=== PATIENT | female | born 1940 | race Caucasian/White ===

== ENCOUNTER 2018-04-18 20:15 | Emergency (ER) | payer OTHER, MEDICARE ==
[~2018-04-18 20:15] MED LIST: LIDODERM 5% PAT1 PAT TOP
[2018-04-18 20:19] VITALS: BP 166/83
[2018-04-18] MEDS ORDERED: LEVEMIR100 UNIT/1 SC (20:23)
[2018-04-18] MEDS ORDERED: LISINOPRIL2.5 M1 PO (20:23)
[2018-04-18] MEDS ORDERED: SIMVASTATIN5 M2 PO (20:24)
--- NOTE | 2018-04-18 20:43 | ED NECK/BACK PAIN COMPLAINT ---
History of Present Illness General Chief Complaint: Lower Extremity Problems Stated Complaint: PT LOWER BACK PAIN Source: patient Exam Limitations: no limitations Vital Signs & Intake/Output Vital Signs & Intake/Output Vital Signs Date Time Temp Pulse Resp B/P B/P Pulse O2 O2 Flow FiO2 Mean Ox Delivery Rate 04/18 2019 97.8 62 16 166/83 98 Room Air Allergies Coded Allergies: Iodinated Contrast- Oral and IV Dye (Severe, BLISTER, FACIAL SWELLING FROM CAT SCAN DYE 04/18/18) Reconcile Medications Insulin Detemir (Levemir) 100 UNIT/ML VIAL DM (Reported) Lisinopril 2.5 MG TABLET 1 TAB PO DAILY HTN (Reported) Naproxen 375 MG TABLET 1 TAB PO BID PRN PAIN with food Simvastatin (Simvastatin*) 5 MG TABLET 1 TAB PO DAILY CHOL (Reported) Tylenol With Codeine (Tylenol With Codeine #3 Tablet) 300 MG-30 MG TABLET 1 TAB PO BIDP PRN PAIN Triage Note: PER PT LOW BACK PAIN HAPPENS ALOT BUT CAN USUALLY WALK IT OFF, DROVE HOME FROM [place] 15 HRS DAY 1 AND 12 HRS TODAY, CANT WALK IT OFF PAIN IS INTENSE 10/10 Triage Nurses Notes Reviewed? yes Onset: Gradual Duration: getting worse Timing: recent history Quality/Severity: severe Location: paraspinous muscles Radiation: buttocks HPI: Patient is a 77 old female with a past medical history chronic low back pain without surgical intervention hyperlipidemia and diabetes who presents emergency room stating that for the past 2 days patient has driven 25 hours in a car from [place] where she states that last night while in the hotel room after 15 hours of driving she bent forward and stood up to grab something light off the floor where she had acute onset of right-sided muscular back pain with mild radiation to her gluteal region. Patient denies any trauma states that movement makes worse unrelieved with Tylenol and cyclobenzaprine. Denies any extremity paresthesia weakness denies any abdominal pain or fever chills. (Estuardo Mccoy) Past History Travel History Traveled to [place] past 21 day No Medical History Any Pertinent Medical History? 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 No (Estuardo Mccoy) Review of Systems Review of Systems Constitutional: Reports: no symptoms. Eyes: Reports: no symptoms. Ears, Nose, Throat, Mouth: Reports: no symptoms. Respiratory: Reports: no symptoms. Cardiovascular: Reports: no symptoms. Gastrointestinal/Abdominal: Reports: no symptoms. Musculoskeletal: Reports: see HPI, back pain, muscle pain, muscle stiffness. Skin: Reports: no symptoms. Neurological/Psychological: Reports: no symptoms. All Other Systems: Reviewed and Negative (Estuardo Mccoy) Physical Exam Physical Exam General Appearance: no apparent distress, alert, comfortable Head: atraumatic Eyes: Bilateral: normal appearance. Neck: normal inspection, no midline tenderness Respiratory: no respiratory distress Gastrointestinal: normal bowel sounds, soft, non-tender Extremities: non-tender Neurologic/Psych: no motor/sensory deficits, awake, alert, oriented x 3, normal gait, normal mood/affect Skin: intact, normal color, warm/dry Comments: Lumbar spine no central spinous tenderness decreased active range of motion noted right-sided lateral muscular point tenderness noted Bilateral lower extremities myotomes dermatomes intact Right gluteal region noted point tenderness normal inspection Core Measures CVA/TIA Diagnosis: No (Estuardo Mccoy) Progress Differential Diagnosis: C spine injury, carotid dissection, cauda equina syn, herniated disc, myofascial strain, pyelo/UTI, sciatica, spinal cord inj, thoracic outlet syn, T/L spine injury, ureterolithiasis Plan of Care: Current Medications Sig/Margo Start time Last Medication Dose Stop Time Status Admin Acetaminophen/ 1 TAB ONCE ONE 04/18 2115 AC Codeine Phosphate 04/18 2116 (Tylenol #3) Due to history of present illness and exam findings patient has concerns of lumbar strain no concerns of cauda equina syndrome, DISCITIS OR SPINAL ABSCESS nexus criteria zero (Estuardo Mccoy) Departure Departure Disposition: HOME OR SELF CARE Condition: Stable Clinical Impression Primary Impression: Low back strain Secondary Impressions: Sciatica Referrals: Lilly FUNEZ,Ricardo Thomas (PCP/Family) Additional Instructions: As discussed begin icing the area directly 20 minutes every 2 hours, begin the prescription of Naprosyn for pain and the prescription of Tylenol with codeine for breakthrough pain relief, if no better on Monday follow up with [facility] [facility] if symptoms worsen return to emergency room Prescriptions waiting at [facility] Departure Forms: Customer Survey General Discharge Information Prescriptions: Current Visit Scripts Tylenol With Codeine (Tylenol With Codeine #3 Tablet) 1 TAB PO BIDP PRN PAIN #5 TAB Naproxen 1 TAB PO BID PRN PAIN #10 TAB with food (Estuardo Mccoy) PA/MATERIALS MANAGER Co-Sign Statement Statement: ED Attending supervision documentation- x I saw and evaluated the patient. I have also reviewed all the pertinent lab results and diagnostic results. I agree with the findings and the plan of care as documented in the PA's/MATERIALS MANAGER's documentation. [] I have reviewed the ED Record and agree with the PA's/MATERIALS MANAGER's documentation. [] Additions or exceptions (if any) to the PAs/MATERIALS MANAGER's note and plan are summarized below: [] (Vernell FUNEZ,Ronaldo)
[2018-04-18] MEDS ORDERED: TYLENOL WITH C1 EACH PO (21:13)
[2018-04-18] MEDS ORDERED: NAPROXEN375 M2 PO (21:13)
== END 2018-04-18 21:31 ==
LOC: ERH 20:15
DX: S39.012A Strain of muscle, fascia and tendon of lower back, initial encounter (principal); M54.41 Lumbago with sciatica, right side; X58.XXXA Exposure to other specified factors, initial encounter; Y92.89 Other specified places as the place of occurrence of the external cause; Y93.89 Activity, other specified